=== PATIENT | male | born 1950 | race Caucasian/White ===

== ENCOUNTER 2020-12-21 17:18 | Emergency (ER) | payer MEDICARE, SELFPAY ==
[2020-12-21 17:30] VITALS: BP 154/72; PULSE 79; RESP 18; TEMP 36.8; O2SAT 96
[2020-12-21] MEDS: TET,DIPH,PERTUSS(ACELL),VAC/PF 0.5 ML SYRINGE IM (17:37)
[2020-12-21] MEDS: LIDO 1%/SOD BICARB 8.4% (10ML) 10 ML SYRINGE INJ (17:38)
--- NOTE | 2020-12-21 17:38 | DI.RAD.S_ITS ---
PROCEDURE: XR HAND RT 2V INDICATIONS: laceration distal wrist proximal thumb TECHNIQUE: 2 views of the hand(s) acquired. COMPARISON: None. FINDINGS: Bones: No fractures or dislocations. Carpal bones are normally aligned. No suspicious bony lesions. Soft tissues: No suspicious soft tissue calcifications. No radiopaque foreign body. IMPRESSION: No acute abnormality. No radiopaque foreign body. Dictated by: Nelson Salgado M.D. on 12/21/2020 at 18:00 Approved by: Nelson Salgado M.D. on 12/21/2020 at 18:03
--- NOTE | 2020-12-21 17:48 | ED_ITS ---
HPI - Wound/Laceration <Mala Magana, [facility] - Last Filed: 12/21/20 19:11> General Chief Complaint: Wound/Laceration Stated Complaint: RT HAND INJURY, NEEDS STITCHES Time Seen by Provider: 12/21/20 17:30 Source: patient Mode of arrival: Family Vehicle Limitations: no limitations History of Present Illness HPI narrative: 70-year-old right-handed male with history of hypertension, hyperlipidemia and glaucoma presents to the emergency department after accidentally cutting himself on dorsum of his right hand proximal to his right thumb. Bleeding is controlled, patient is not on any blood thinners, he does not have any numbness or tingling or changes in sensation distally, he has full range of motion, complains that it is mildly painful but tolerable, denies any known foreign body. He states he was cutting a piece of stone, if there is a foreign body he reports it is most likely a powder. This happened just prior to arrival, he does not know when his last tetanus was, and consents to having a tetanus vaccination today. He has full range of motion in his thumb and wrist, is denies pain with flexion or extension of his thumb. Related Data Home Medications Medication Instructions Recorded Confirmed betaxolol 0.25 % eye 1 drp OPHTH BID #0 03/18/16 drops,suspension (Betoptic S) Previous Rx's Medication Instructions Recorded atorvastatin 20 mg tablet (Lipitor) 0 PO HS #90 tab 09/21/16 lisinopril 20 0 PO QDAY #90 tab 09/21/16 mg-hydrochlorothiazide 25 mg tablet pneumoc 13-clemente conj-dip cr(PF) 0.5 0.5 ml IM X1 #1 ea 09/21/16 mL IM syringe (Prevnar 13 (PF)) testosterone 20.25 mg/1.25 gram 0 TOPICAL QDAY #1 mg 09/21/16 (1.62 %) transdermal gel pump (AndroGel) diph,pertuss(acel),tet vac(PF) 0.5 ml IM X1 #1 dose 10/19/16 (Adacel(Tdap Adolesn/Adult)(PF)) zoster vaccine live (PF) 19,400 0.5 ml SQ STAT #1 ml 10/19/16 unit/0.65 mL subcutaneous suspension (Zostavax (PF)) Allergies Allergy/AdvReac Type Severity Reaction Status Date / Time No Known Allergies Allergy Uncoded 12/21/20 17:33 Review of Systems <CYNTHIA Renteria - Last Filed: 12/21/20 19:11> Review of Systems Narrative: General: denies fever, chills Head/Neck: denies headache, neck pain Eyes: denies visual changes, eye pain Cardio: denies chest pain, palpitations Respiratory: denies shortness of breath, cough GI: denies abdominal pain, nausea, vomiting, or diarrhea : denies dysuria, hematuria MSK: denies joint pain, muscle weakness Skin: denies rash, itching, endorses having a laceration to the top of his hand near the bottom of his thumb. Neuro: denies numbness, tingling Patient History <CYNTHIA Renteria - Last Filed: 12/21/20 19:11> Social History Smoking Status: Current some day smoker Smoking Status: Current some day smoker tobacco type: cigarettes alcohol intake frequency: a few times a month Alcohol type: wine Substance Use Type: does not use Exam <CYNTHIA Renteria - Last Filed: 12/21/20 19:11> Narrative Exam Narrative: Independently reviewed vitals signs and nursing notes. General: Awake, alert, nontoxic, no cardiorespiratory distress Head/Neck: Atraumatic, neck full range of motion Eyes: EOMI, conjunctiva normal Nose: nares patent, no rhinorrhea Mouth/Throat: moist mucus membranes Cardio: Regular rate and rhythm, no peripheral edema Respiratory: respirations unlabored without retractions GI: Abdomen nondistended MSK: Moves all extremities, neurovascularly intact Skin: Normal capillary refill, no rash, laceration to the dorsum of his rt hand proximal to the base of his thumb approximately 3 cm by 4 mm, superficial, through the dermis layer without evidence of tendon injury in a bloodless field, tendon glides easily without appearance of disruption, patient able to extend and flex thumb against weight without pain Neuro: Normal speech and cognition, normal gait Initial Vital Signs Initial Vital Signs: Vital Signs Temperature 98.2 F 12/21/20 17:30 Pulse Rate 79 12/21/20 17:30 Respiratory Rate 18 12/21/20 17:30 Blood Pressure 154/72 H 12/21/20 17:30 Pulse Oximetry 96 12/21/20 17:30 <Caesar Warren DO - Last Filed: 12/22/20 08:37> Initial Vital Signs Initial Vital Signs: Vital Signs Temperature 98.2 F 12/21/20 17:30 Pulse Rate 79 12/21/20 17:30 Respiratory Rate 18 12/21/20 17:30 Blood Pressure 154/72 H 12/21/20 17:30 Pulse Oximetry 96 12/21/20 17:30 Procedures <CYNTHIA Renteria - Last Filed: 12/21/20 19:11> Laceration Repair Laceration 1: Site: hand Side (If applicable): right Size (cm): 3 Description: linear Depth: simple, single layer Local Anesthetic: lidocaine 1% and with bicarb Amount of anesthesia used (mL): 3 Pre-repair: wound explored, irrigated extensively and deep structures intact Skin layer closed with: nylon Size (cm): 5-0 Number of sutures: 6 Technique: simple, interrupted Course <CYNTHIA Renteria - Last Filed: 12/21/20 19:11> Orders Ordered: Discontinued Medications Bacitracin (Bacitracin Oint 0.9 Gm Pckt) 1 applic TOP NOW ONE Stop: 12/21/20 18:18 Last Admin: 12/21/20 18:20 Dose: 1 applic Documented by: ANTON Diphtheria/Tetanus/Acell Pertussis (Tet,Diph,Pertuss(Acell),Vac/Pf 0.5 Ml Syringe) 0.5 ml IM .ONCE ONE Stop: 12/21/20 17:29 Last Admin: 12/21/20 17:37 Dose: 0.5 ml Documented by: ANTON Lidocaine/Sodium Bicarbonate (Lido 1%/Sod Bicarb 8.4% (10ml) 10 Ml Syringe) 10 ml INJ NOW ONE Stop: 12/21/20 17:34 Last Admin: 12/21/20 17:38 Dose: 10 ml Documented by: ANTON Vital Signs Vital signs: Vital Signs - 8 hr 12/21/20 17:30 12/21/20 18:27 Temperature 98.2 F Pulse Rate 79 70 Respiratory Rate 18 18 Blood Pressure 154/72 H 130/61 Pulse Oximetry 96 100 <Caesar Warren DO - Last Filed: 12/22/20 08:37> Orders Ordered: Discontinued Medications Bacitracin (Bacitracin Oint 0.9 Gm Pckt) 1 applic TOP NOW ONE Stop: 12/21/20 18:18 Last Admin: 12/21/20 18:20 Dose: 1 applic Documented by: ANTON Diphtheria/Tetanus/Acell Pertussis (Tet,Diph,Pertuss(Acell),Vac/Pf 0.5 Ml Syringe) 0.5 ml IM .ONCE ONE Stop: 12/21/20 17:29 Last Admin: 12/21/20 17:37 Dose: 0.5 ml Documented by: ANTON Lidocaine/Sodium Bicarbonate (Lido 1%/Sod Bicarb 8.4% (10ml) 10 Ml Syringe) 10 ml INJ NOW ONE Stop: 12/21/20 17:34 Last Admin: 12/21/20 17:38 Dose: 10 ml Documented by: ANTON Vital Signs Vital signs: Vital Signs - 8 hr 12/21/20 17:30 12/21/20 18:27 Temperature 98.2 F Pulse Rate 79 70 Respiratory Rate 18 18 Blood Pressure 154/72 H 130/61 Pulse Oximetry 96 100 MDM - Wound/Laceration <CYNTHIA Renteria - Last Filed: 12/21/20 19:11> [facility] Narrative Medical decision making narrative: Pt is a 70 yo right-handed male who presents after causing a 3cm linear laceration to the dorsum of his right hand, proximal to his right thumb 3 hours ago. XR shows no fracture, dislocation, or foreign body. Laceration unlikely contaminated requiring ABX. Clean bottom of a bloodless field was witnessed on exam without disruption to tendons visualized with full ROM. Neurosensory exams and circulation appropriate distal to the wound. Wound closed with 6 nonabsorbable 5.0 nylon sutures and neurosensory + circulatory exams same after repair as before. Will DC with return precautions, instructions for home care and follow up with PCP as well for suture removal in 7 days. Pain is under control. Patient is appropriate and amenable to discharge home. Vital signs are stable on repeat examination is unremarkable. Patient has been informed of results. Patient has been given strict return to ER precautions for any new or worsening symptoms. Patient understands to follow up closely with outpatient providers as instructed. Patient understands plan and agrees to discharge home. All questions and concerns answered at this time. Discharge Plan Departure Patient Disposition: Home Clinical Impression: Laceration Instructions: DI for Laceration Repair Activity Restrictions/Additional Instructions: *You have been diagnosed with a laceration on your dominant hand. It is not appear to be infected, but please given eye out for any redness tracking up your arm, swelling, increased pain and please return to the emergency department or your primary care provider if you notice this for antibiotics. He received a tetanus today, you are good for 10 more years. Please keep the wound clean and dry to the best of your ability. Please monitor for signs of infection such as redness to the skin or increasing pain. Have the sutures removed by your doctor in about 7 days. If you are unable to get into your doctor, we would be happy to remove the sutures in that same timeframe. *What to do: *Please continue to take your regular medications as directed. [ ] New medication prescriptions sent to your pharmacy: [ ] [ ] New medication written as a paper prescription [ x] No new medications given *Please follow up with your primary care provider in 2-3 days, call for an appointment. Let them know you were seen in the Emergency Department and that we ask that you be seen in follow up. We will electronically transmit a record of today's note if your PCP is in our system *If you do not have a primary care provider please contact the [facility] Resource line at [phone]. They will ask some questions about your medical history and help get you set up with a doctor in the community. *Return to Emergency Department if you should have any new, worsening or concerning symptoms, such as [fever greater than 101F, chills, worsening pain, persistent vomiting or other bothersome symptoms] Prescriptions: No Action betaxolol [Betoptic S] 0.25 % drops,suspension 1 drp OPHTH BID Qty: 0 RF: 0 pneumoc 13-clemente conj-dip cr(PF) [Prevnar 13 (PF)] 0.5 ML syringe 0.5 ml IM X1 Qty: 1 RF: 0 atorvastatin [Lipitor] 20 MG tablet 0 PO HS Qty: 90 RF: 1 lisinopril-hydrochlorothiazide 20 MG/25 MG tablet 0 PO QDAY Qty: 90 RF: 1 testosterone [AndroGel] 75 GM gel in metered-dose pump 0 Topical QDAY Qty: 1 RF: 1 zoster vaccine live (PF) [Zostavax (PF)] 19,400 UNIT/0.65 ML suspension for reconstitution 0.5 ml SQ STAT Qty: 1 RF: 0 diph,pertuss(acel),tet vac(PF) [Adacel(Tdap Adolesn/Adult)(PF)] 0.5 ML suspension 0.5 ml IM X1 Qty: 1 RF: 0 Referrals: Prasad Rico MD [Primary Care Provider] - <Caesar Warren DO - Last Filed: 12/22/20 08:37> Cosign ED Attending Cosignature Attestation: I was immediately available in the department for consultation. This documentation has been reviewed and I agree with assessment and plan. Supervised by Caesar Warren DO
[2020-12-21] MEDS: BACITRACIN OINT 0.9 GM PCKT 1 APPLIC TOP (18:20)
[2020-12-21 18:27] VITALS: BP 130/61; PULSE 70; RESP 18; O2SAT 100
== END 2020-12-21 18:29 | disposition home or self-care (01) ==
PROVIDERS: Emergency Provider Nurse Practitioner Critical Care Medicine; PCP Family Medicine
DX: S61.011A Laceration without foreign body of right thumb without damage to nail, initial encounter (principal); W26.8XXA Contact with other sharp object(s), not elsewhere classified, initial encounter; Z23 Encounter for immunization
CPT/HCPCS: 12002; 73130; 90471; 99283; 99284; 90715